=== PATIENT | male | born 1960 | race Caucasian/White ===

== ENCOUNTER 2023-08-24 17:55 | Emergency (ER) | payer MEDICARE, MEDICAID ==
[~2023-08-24] VITALS: Ht 190.5 cm; Wt 79.0 kg
[2023-08-24 19:05] LABS: BASOPHILS # (AUTO) 0.1 X10'3 (0-0.2); BASOPHILS % (AUTO) 0.5 % (0-1); EOSINOPHILS % (AUTO) 0.3 % (0-6); HEMATOCRIT 41.7 % (42.0-52.0); HEMOGLOBIN 14.5 g/dl (14.0-17.9); LYMPHOCYTES # (AUTO) 0.8 X10'3 (1.1-4.8); LYMPHOCYTES % (AUTO) 6.2 % (21-51); MEAN CORPUSCULAR HEMOGLOBIN 32.5 PG (27.0-31.0); MEAN CORPUSCULAR HGB CONC 34.8 g/dL (33.0-36.5); MEAN CORPUSCULAR VOLUME 93.5 FL (78-98); MEAN PLATELET VOLUME 7.4 FL (7.4-10.4); MONOCYTES # (AUTO) 1.3 X10'3 (0-0.9); NEUTROPHILS # (AUTO) 10.4 X10'3 (1.8-7.7); PLATELET COUNT 272 X10'3 (140-440); RED BLOOD COUNT 4.46 X10'6 (4.70-6.10); RED CELL DISTRIBUTION WIDTH 12.9 % (11.5-14.5); WHITE BLOOD COUNT 12.5 X10'3 (4.5-11.0)
[2023-08-24 19:21] LABS: ALANINE AMINOTRANSFERASE 16 U/L (12-78); ALBUMIN 3.8 G/DL (3.4-5.0); ALKALINE PHOSPHATASE 123 IU/L (46-116); ANION GAP 8 (8-16); ASPARTATE AMINO TRANSFERASE 15 U/L (10-37); BILIRUBIN,TOTAL 0.7 MG/DL (0.1-1.0); BLOOD UREA NITROGEN 16 MG/DL (7-18); BUN/CREATININE RATIO 12.8 (10.0-20.0); C-REACTIVE PROTEIN 6.82 MG/DL (0.0-0.5); CALCIUM 9.1 MG/DL (8.5-10.1); CHLORIDE 99 MMOL/L (99-107); CREATININE 1.25 MG/DL (0.60-1.10); GLUCOSE 227 MG/DL (70-104); POTASSIUM 3.5 MMOL/L (3.5-5.1); SODIUM 138 MMOL/L (135-145); TOTAL PROTEIN 7.6 G/DL (6.4-8.2); eCRCL 67 ML/MIN; eGFR 58 ML/MIN
[2023-08-24] MEDS ORDERED: normal saline 1000ML IV soln IV ONE (19:40)
[2023-08-24] MEDS ORDERED: piperacillin/tazo 3.375gm/50ml 50 ML IV ONE (19:40)
[2023-08-24] MEDS ORDERED: acetaminophen 325mg tablet PO STA (19:40)
[2023-08-24] MEDS ORDERED: ondansetron/PF 4mg/2ml inj IV ONE (20:55)
[2023-08-24] MEDS ORDERED: morphine 4 MG/ML inj SYRINge IV ONE (20:55)
--- NOTE | 2023-08-24 21:09 | NUR ---
rn cardiovascular icu at bedside.
[2023-08-24] MEDS ORDERED: CEPH250T PO (21:40)
[2023-08-24] MEDS ORDERED: DOXY-356 PO (21:40)
[2023-08-24 21:47] VITALS: BP 138/76; PULSE 89; RESP 13; TEMP 98.9; O2SAT 99
== END 2023-08-24 21:54 | disposition home or self-care (01) ==
LOC: ER 17:58
DX: B07.0 Plantar wart (principal); L03.115 Cellulitis of right lower limb
CPT/HCPCS: 36415; 80053; 83605; 84145; 85025; 85651; 86140; 87040; 93971; 96365; 96375; 99285; J2270; J2405; J2543; J7030

== ENCOUNTER 2024-04-24 16:55 | Emergency (ER) | payer MEDICARE, MEDICAID ==
[~2024-04-24] VITALS: Ht 190.5 cm; Wt 88.6 kg
[~2024-04-24 16:55] MED LIST: ATOR20TA66 PO; CYCL5TAB PO; INSU100I8 SQ; LANTUS SQ; LISI40TA13 PO; TRAZ-251 PO
[2024-04-24 18:47] LABS: BASOPHILS # (AUTO) 0.1 X10'3 (0-0.2); EOSINOPHILS % (AUTO) 0.2 % (0-6); HEMATOCRIT 43.6 % (42.0-52.0); HEMOGLOBIN 14.8 g/dl (14.0-17.9); LYMPHOCYTES # (AUTO) 1.4 X10'3 (1.1-4.8); LYMPHOCYTES % (AUTO) 21.5 % (21-51); MEAN CORPUSCULAR HEMOGLOBIN 31.6 PG (27.0-31.0); MEAN PLATELET VOLUME 7.6 FL (7.4-10.4); MONOCYTES # (AUTO) 0.5 X10'3 (0-0.9); MONOCYTES % (AUTO) 7.8 % (2-12); NEUTROPHILS # (AUTO) 4.7 X10'3 (1.8-7.7); NEUTROPHILS % (AUTO) 69.5 % (42-75); PLATELET COUNT 308 X10'3 (140-440); RED BLOOD COUNT 4.69 X10'6 (4.70-6.10); RED CELL DISTRIBUTION WIDTH 13.5 % (11.5-14.5); WHITE BLOOD COUNT 6.7 X10'3 (4.5-11.0)
[2024-04-24 18:56] LABS: ALBUMIN 3.8 G/DL (3.4-5.0); ANION GAP 11 (8-16); BLOOD UREA NITROGEN 20 MG/DL (7-18); BUN/CREATININE RATIO 16.3 (10.0-20.0); CALCIUM 9.4 MG/DL (8.5-10.1); CHLORIDE 101 MMOL/L (99-107); CREATININE 1.23 MG/DL (0.60-1.10); GLUCOSE 135 MG/DL (70-104); POTASSIUM 4.5 MMOL/L (3.5-5.1); SODIUM 139 MMOL/L (135-145); TOTAL CARBON DIOXIDE 27.3 MMOL/L (24-32); eCRCL 72 ML/MIN; eGFR 59 ML/MIN
[2024-04-24 20:24] LABS: BILIRUBIN,URINE MODERATE (Neg); CLARITY,URINE CLEAR (Clear); COLOR,URINE YELLOW (Yellow); GLUCOSE, URINE NEGATIVE (Neg); KETONES,URINE >=80 mg/dl (Neg); LEUKOCYTE ESTERASE ,URINE NEGATIVE (Neg); NITRITES, URINE NEGATIVE (Neg); OCCULT BLOOD,URINE NEGATIVE (Neg); PROTEIN,URINE TRACE mg/dl (Neg); UROBILINOGEN,URINE 0.2 E.U/dL (0.2-1.0)
[2024-04-24 20:27] LABS: UA COLLECTION TYPE URINAL
[2024-04-24 20:28] LABS: URINE AMPHETAMINE SCREEN NEGATIVE (Neg); URINE BARBITUATE SCREEN NEGATIVE (Neg); URINE BENZODIAZEPINES SCREEN NEGATIVE (Neg); URINE CANNABINOID SCREEN POSITIVE (Neg); URINE COCAINE SCREEN NEGATIVE (Neg); URINE METHADONE SCREEN NEGATIVE (Neg); URINE OPIATE SCREEN NEGATIVE (Neg); URINE PHENCYCLIDINE SCREEN NEGATIVE (Neg)
[2024-04-24 20:39] LABS: BACTERIA,URINE FEW /HPF (Neg); MUCUS STRANDS MANY /LPF (Neg); RBC,URINE 0-2 /HPF (0-2); SQUAMOUS EPITHELIAL CELL,UR FEW /LPF (FEW)
[2024-04-25 08:44] VITALS: BP 126/78; PULSE 93; RESP 16; TEMP 98; O2SAT 98
[2024-04-25] MEDS: INSULIN LISPRO 100 UNIT/ML INSULN.PEN MULTI-DOSE SQ SCH (17:55)
[2024-04-25] MEDS ORDERED: traZODone 50mg tablet PO SCH (21:00)
[2024-04-25] MEDS ORDERED: insulin glargine (Lantus) pen - multi-dose SQ SCH (21:00)
[2024-04-26] MEDS ORDERED: lisinopril 20mg tablet PO SCH (08:00)
== END 2024-04-25 18:02 | disposition home or self-care (01) ==
LOC: ER 16:56
DX: F91.9 Conduct disorder, unspecified (principal); I10 Essential (primary) hypertension; F31.9 Bipolar disorder, unspecified; Z79.899 Other long term (current) drug therapy; Z79.4 Long term (current) use of insulin
CPT/HCPCS: 36415; 80048; 80305; 81001; 82948; 85025; 99285; J1815